=== PATIENT | female | born 1995 | race Caucasian/White ===

== ENCOUNTER 2017-01-02 17:29 | Emergency (ER) | payer OTHER ==
[~2017-01-02] VITALS: Ht 157.5 cm; Wt 86.2 kg
--- NOTE | ~2017-01-02 | EKG ---
[address] [address] ELECTROCARDIOGRAM REPORT Name: YUE RODRIGUEZ [id number] Admission: 01/02/17 Attend Phys: Discharge: 01/02/17 Date of : [birth year] Report #: [id number] THIS REPORT FOR: //name// [facility] ED Test Date: 2017-01-02 Test Time: 17:47:23 Pat Name: YUE RODRIGUEZ Department: Room: Gender: F Planning Intern: mikayla : 1995 Requested By: Luciano Champion Order Number: [id number] MD: Antonio Mixon Measurements Intervals [place] Rate: 81 P: 41 MA: 139 QRS: 53 QRSD: 94 T: 9 QT: 376 QTc: 437 Interpretive Statements Sinus rhythm No significant abnormality No previous ECG available for comparison Electronically Signed On 01-03-2017 7:08:35 CDT by Antonio Mixon [email or web address] <ELECTRONICALLY SIGNED> By: Antonio Mixon MD, [facility] 01/03/17 [id number] Antonio Mixon MD, FACC /EPI
[2017-01-02] MEDS ORDERED: UNICOMPLEX M TA1 TA1 PO (17:47)
[2017-01-02] MEDS ORDERED: BIRTH CONTROL (17:48)
[2017-01-02 17:50] LABS: URINE BILIRUBIN NEGATIVE (Negative); URINE BLOOD NEGATIVE (Negative); URINE COLOR YELLOW; URINE GLUCOSE-RANDOM* NEGATIVE (Negative); URINE KETONES NEGATIVE (Negative); URINE LEUKOCYTES-REFLEX NEGATIVE (Negative); URINE PROTEIN (DIPSTICK) NEGATIVE (Negative); URINE SPECIFIC GRAVITY >= 1.030 (1.003-1.035); URINE UROBILINOGEN 0.2 E.U./dl (0.2-1.0)
[2017-01-02 17:54] LABS: ABSOLUTE NEUTROPHILS 7.8 thou/uL (1.4-8.2); BASOPHILS 0.6 % (0.0-2.0); EOSINOPHILS 1.3 % (0.0-3.0); HEMATOCRIT 37.3 % (37.0-47.0); HEMOGLOBIN 12.6 gm/dL (12.0-15.0); LYMPHOCYTES 30.5 % (24.0-44.0); MCH 28.8 pg (26.0-34.0); MCHC 33.7 g/dL (28.0-37.0); MCV 85.5 fL (80.0-100.0); PLATELET COUNT 351 thou/uL (150-400); POLYS 61.6 % (36.0-66.0); RBC 4.37 mil/uL (4.20-5.00); RDW 14.2 % (10.5-14.5); WBC 12.7 thou/uL (4.0-11.0)
[2017-01-02 18:00] LABS: MANUAL DIFF NO
[2017-01-02 18:07] LABS: CALCIUM 8.7 mg/dL (8.5-10.1); CREATININE 0.7 mg/dL (0.6-1.0); POTASSIUM 3.3 mmol/L (3.5-5.1)
[2017-01-02 18:11] LABS: ALBUMIN 3.5 g/dL (3.4-5.0); TOTAL BILIRUBIN 0.2 mg/dL (<0.1-1.0); TOTAL PROTEIN 7.7 g/dL (6.4-8.2)
[2017-01-02 19:29] VITALS: BP 121/69
== END 2017-01-02 20:10 | disposition home or self-care (01) ==
LOC: ER 17:29
PROVIDERS: Emergency Medicine
DX: R53.1 Weakness (principal); Z88.1 Allergy status to other antibiotic agents